=== PATIENT | male | born 1955 | race Caucasian/White ===

== ENCOUNTER → 2022-09-10 10:42 | Outpatient (CLI) | payer MEDICARE, SELFPAY ==
--- NOTE | ~2022-09-10 | CT_ITS ---
EXAMINATION: CT lung screening DATE: 09/10/2022 10:58 INDICATION: Personal history of tobacco dependence TECHNIQUE: Computed tomography (CT) of the chest was performed without intravenous contrast. The dose -length product was 73.05 mGy-cm. Automated exposure control and iterative reconstruction technique w ere employed. COMPARISON: None FINDINGS: No significant pleural or pericardial effusion. There is atherosclerosis of the aorta and c oronary arteries. Heart size normal. There is a 7 mm left upper lobe nodule, image 39. Mild emphysema . No endobronchial lesions. No pneumothorax. No peripheral airspace consolidation. There is calcified granuloma right mid thorax. IMPRESSION: 1. Lung-RADS category 3: Probably benign. Further evaluation is recommended with noncontrast low-dose chest CT in 6 months. Reviewed, dictated and finalized at location B. IMPRESSION: 1. Lung-RADS category 3: Probably benign. Further evaluation is recommended wit h noncontrast low-dose chest CT in 6 months.
== END ==
PROVIDERS: PCP Family Medicine; Visit Provider Family Medicine
DX: Z12.2 Encounter for screening for malignant neoplasm of respiratory organs (principal); Z87.891 Personal history of nicotine dependence; R91.8 Other nonspecific abnormal finding of lung field
CPT/HCPCS: 71271